=== PATIENT | female | born 1970 | race Caucasian/White ===

== ENCOUNTER 2020-03-25 16:19 | Outpatient (CLI) | payer BC, SELFPAY ==
--- NOTE | ~2020-03-25 | XR_ITS ---
EXAMINATION: XR knee RT 3V DATE: 03/25/2020 16:55 INDICATION: Right knee pain and injury. TECHNIQUE: 3 views of right knee were obtained. COMPARISON: None. FINDINGS: Bone alignment is normal. No fracture. There is mild osteoarthritis of lateral and patellof emoral compartments characterized by tiny marginal osteophytes. No knee joint effusion. IMPRESSION: 1. Mild right knee osteoarthritis. Reviewed, dictated and finalized at location A.
== END 2020-03-25 16:20 | disposition home or self-care (01) ==
PROVIDERS: PCP Internal Medicine; Visit Provider Physician Assistant
DX: M25.561 Pain in right knee (principal); M17.11 Unilateral primary osteoarthritis, right knee
CPT/HCPCS: 73562

== ENCOUNTER 2021-04-28 16:19 | Outpatient (CLI) | payer BC, SELFPAY ==
[2021-04-28 16:47] LABS: Add Urine Microscopic? YES; Appearance Urine Cloudy (Clear); Bilirubin Urine Negative (Negative); Blood Urine Negative (Negative); Color Urine Yellow (Yellow); Glucose Urine UA Negative (Negative); Ketones Urine Negative (Negative); Leukocyte Esterase Ur 3+ LEU/UL (Negative); Nitrate Urine Positive (Negative); Protein Urine 1+ mg/dL (Negative); Specific Grav Ur 1.017 (1.001-1.035); Squamous Epithelial Cell Urine Occasional /hpf (Few); Urobilinogen Urine Negative mg/dL (<2.0); WBC Clumps Urine Present /HPF; WBC Urine >75 /hpf
== END 2021-04-28 16:20 | disposition home or self-care (01) ==
LOC: ANHLAB 16:21
PROVIDERS: PCP Internal Medicine; Visit Provider Internal Medicine
DX: R30.0 Dysuria (principal)
CPT/HCPCS: 81001; 87077; 87086; 87186

== ENCOUNTER 2021-06-01 06:57 | Outpatient (CLI) | payer BC, SELFPAY ==
[2021-06-01 07:47] LABS: Add Urine Microscopic? YES; Appearance Urine Cloudy (Clear); Bacteria Urine Trace /hpf; Bilirubin Urine Negative (Negative); Blood Urine 1+ (Negative); Color Urine Yellow (Yellow); Glucose Urine UA Negative (Negative); Ketones Urine Negative (Negative); Leukocyte Esterase Ur 3+ LEU/UL (Negative); Mucus Urine Rare /lpf; Nitrate Urine Negative (Negative); Protein Urine 1+ mg/dL (Negative); Specific Grav Ur 1.013 (1.001-1.035); Squamous Epithelial Cell Urine Rare /hpf (Few); Urobilinogen Urine Negative mg/dL (<2.0); WBC Clumps Urine Present /HPF; WBC Urine >75 /hpf
== END 2021-06-01 06:58 | disposition home or self-care (01) ==
PROVIDERS: PCP Internal Medicine; Visit Provider Internal Medicine
DX: R30.0 Dysuria (principal)
CPT/HCPCS: 81001; 87077; 87086; 87186

== ENCOUNTER → 2021-09-01 02:58 | Outpatient (CLI) | payer BC, SELFPAY ==
[2021-09-01 14:31] LABS: SARS-CoV-2 RNA PCR Negative
== END ==
PROVIDERS: PCP Internal Medicine; Visit Provider Physician Assistant
DX: R68.89 Other general symptoms and signs (principal); Z20.822 Contact with and (suspected) exposure to COVID-19
CPT/HCPCS: C9803; U0003; U0005

== ENCOUNTER 2022-09-12 02:06 | Observation (INO) | payer OTHER, BC, SELFPAY ==
[2022-09-12] VITALS (19 sets, daily range): BP systolic 130–144; BP diastolic 70–95; PULSE 103–150; RESP 13–24; TEMP 36.3–37; O2SAT 97–100; BMI 28.6; BMI 28.9
--- NOTE | ~2022-09-12 | US_ITS ---
EXAMINATION: US venous doppler UE RT DATE: 09/12/2022 14:51 INDICATION: Right upper extremity swelling and redness TECHNIQUE: Grayscale ultrasound images without and with compression and Doppler ultrasound images of the right upper extremity veins were obtained. COMPARISON: None. FINDINGS: The visualized portions of the right internal jugular vein, subclavian vein, axillary vein, brachial veins, basilic vein, cephalic vein, radial vein, and ulnar vein are patent. IMPRESSION: 1. No deep venous thrombosis. Reviewed, dictated and finalized at location K.
--- NOTE | ~2022-09-12 | US_ITS ---
EXAMINATION: US soft tissue UE RT DATE: 09/12/2022 14:41 INDICATION: Cellulitis at the right forearm. TECHNIQUE: Multiple grayscale and Doppler ultrasound images of the region of concern at the anterior mid left forearm were obtained. COMPARISON: None FINDINGS: There is soft tissue swelling and nonfocal increased echogenicity of the subcutaneous fat at the varsha on of concern consistent with provided history of cellulitis. There appears to be a subtle linear sca r along the overlying skin surface. There appear to be 5 small very hypoechoic lymph nodes, all measu ring <5 mm in maximal short axis diameter. No other abnormal masses or fluid collections identified. IMPRESSION: 1. Soft tissue swelling and increased echogenicity of the subcutaneous fat which would be consistent with provided history of cellulitis. No associated abscess. 2. A few small lymph nodes measuring up to 5 mm in maximal short axis diameter in the subcutaneous ti ssues at the mid right forearm. This would be an atypical distribution of lymph nodes however per pro vided history this was a site of a prior lymph node transplant from 3 years prior. Reviewed, dictated and finalized at location A. IMPRESSION: 1. Soft tissue swelling and increased echogenicity of the subcutaneous fat whic h would be consistent with provided history of cellulitis. No associated absces s. 2. A few small lymph nodes measuring up to 5 mm in maximal short axis diameter in the subcutaneous tissues at the mid right forearm. 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
--- NOTE | 2022-09-12 02:30 | ECG_ITS ---
Measurements Intervals Dorothy Rate: 127 P: 67 AK: 156 QRS: 38 QRSD: 72 T: 63 QT: 287 QTc: 418 Interpretive Statements SINUS TACHYCARDIA ABNORMAL ECG NO PREVIOUS ECG AVAILABLE FOR COMPARISON Electronically Signed On 09-12-2022 15:09:25 CDT by Ollie Copeland D.O.
[2022-09-12] MEDS: SODIUM CHLORIDE 0.9% IV 2,000 ML 999 ML IV CONT (03:45)
[2022-09-12] MEDS: cefTRIAXone 2 GM/NS 100 ML 2 GM/100 ML BAG IVPB ×2 (03:46→21:07)
[2022-09-12 03:59] LABS: Basophils Percent Auto 0.2 % (0.2-1.2); Eosinophils Percent Auto 0.1 % (0-4.4); Hematocrit 40.5 % (37.0-47.0); Hemoglobin 13.8 g/dL (12.0-15.0); Immature Granulocyte Absolute 0.06 K/mm3 (0.00-0.031); Immature Granulocyte Percent A 0.4 % (0-0.5); Lymphocytes Absolute Auto 0.66 K/mm3 (0.9-3.2); Lymphocytes Percent Auto 4.8 % (18.3-44.2); Mean Corpuscular HGB Conc 34.1 g/dl (32-36); Mean Corpuscular Hemoglobin 30.9 pg (26-34); Mean Corpuscular Volume 90.8 fl (80-100); Mean Platelet Volume 10.7 fl (7.4-10.4); Monocytes Absolute Auto 0.9 K/mm3 (0.1-0.6); Monocytes Percent Auto 6.2 % (2.6-8.5); Neutrophils Absolute Auto 12.1 K/mm3 (1.3-6.7); Neutrophils Percent Auto 88.3 % (45.5-73.1); Platelet Count Result 267 k/mm3 (150-375); Red Blood Count 4.46 M/mm3 (4.2-5.4); Red Cell Distribution Width 12.9 % (11.5-14.5); White Blood Count 13.8 K/mm3 (4.5-10.0)
--- NOTE | 2022-09-12 04:08 | ED.SKABFB ---
HPI - Skin/Abscess/Foreign Bdy General Chief complaint: Skin/Abscess/Foreign Body Stated complaint: cellulitis Time Seen by Provider: 09/12/22 03:23 History of Present Illness HPI narrative: This is a 52-year-old female, with past history of breast cancer, status post mastectomy on the right and recurrent history of right arm cellulitis, secondary to lymphedema. The patient states earlier this evening, she noted some redness of the right arm, concerning for recurrent cellulitis. She took four 250 mg tablets of penicillin as recommended by her infectious disease doctor. Approximately 4 hours later and 2 hours prior to arrival, she woke and noticed rapid spread of redness up the right arm. She also noticed fever of 103 degrees at home. She states she took Tylenol and presented to the emergency department. She denies chest pain or shortness of breath. Related Data Home Medications Medication Instructions Recorded Confirmed anastrozole 1 mg tablet 1 mg PO DAILY 07/06/19 09/12/22 fexofenadine 180 mg tablet 180 mg PO ONCE PRN Allergy Symptoms 07/06/19 09/12/22 venlafaxine 37.5 mg 37.5 mg PO BID 07/06/19 09/12/22 capsule,extended release 24 hr (Effexor XR) penicillin V potassium 250 mg 250 mg PO Q12H 03/02/20 09/12/22 tablet omeprazole 20 mg capsule,delayed 20 mg PO DAILY PRN Acid Reflux 09/12/22 09/12/22 release Allergies Allergy/AdvReac Type Severity Reaction Status Date / Time latex AdvReac Mild Rash Verified 09/12/22 06:33 Review of Systems Review of Systems: CONSTITUTIONAL: fever, chills, Denies sweats. CARDIOVASCULAR: Denies chest pain, palpitations, or edema. RESPIRATORY: Denies cough or dyspnea. GASTROINTESTINAL: Denies abdominal pain, nausea, vomiting, or diarrhea. GENITOURINARY: Denies dysuria or hematuria. SKIN: Spreading erythema and pain of the right arm denies itching. MUSCULOSKELETAL: Denies back pain, joint pain, or myalgia. NEUROLOGIC: Denies headache, numbness, dizziness, or weakness. PSYCHIATRIC: Denies anxiety or depression. PENDING SALE TO [facility] Past Medical History Medical History (Updated 09/13/22 @ 04:16 by Efren Mills MD) Anxiety Breast cancer Cellulitis of right upper extremity Esophageal reflux disease Hyperlipidemia Hypertension Low vitamin D level Overweight (BMI 25.0-29.9) Surgical History Surgical History (Updated 09/12/22 @ 17:11 by Juli Paez APRN) H/O lymph node excision Prior right arm lymph node transfer 2020 History of modified radical mastectomy of right breast 2012 Family History Family History Father Family history of lung cancer, Onset Age: 78 Patient's father is Mother Diabetes mellitus Hypertension Hypercholesteremia Social History Social History (Updated 09/12/22 @ 17:12 by Juli Paez APRN) Smoking packs per day: 0.25 Smoking cigarettes per day: 5.0 Years smoked: 1.5 Smoking pack-years: 0.38 Smoking status: Former smoker Tobacco type: cigarettes Second hand tobacco smoke exposure: No Smoking end date: 06/24/94 Additional smoking assessment comments: smoked in teens Alcohol intake: current Drinks per week: 1 Alcohol use details: socially Substance use: never Lack of Transportation: No Lack of Food: Never True Current Housing: I Have Housing Concerned About Future Housing: No Difficulty Paying Gas/Electric Bills: No Difficulty Paying for Meds: No Currently Unemployed: No Education: High School Diploma/GED Difficulty w/ Childcare or Family Care: No Living arrangements: with family Occupation/Education: occupation 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 Spiritual care concerns: No Exam Narrative: GENERAL: Well-developed, well-nourished, and in no acute distress. HEAD: Normocephalic, atraumatic. EYES: PERRLA and EOMI. ENT: Nares clear, no rhinorrhea or epista
[2022-09-12 04:09] LABS: Lactic Acid Reflex 1.8 mmol/L (0.7-2.0)
[2022-09-12 04:11] LABS: Alanine Aminotransferase 24 U/L (6-35); Albumin Level 4.5 g/dL (3.5-5.1); Alkaline Phosphatase 114 U/L (38-126); Anion Gap 6 mmol/L (8-16); Aspartate Amino Transferase 33 U/L (14-36); Bilirubin,Total 0.8 mg/dL (0.2-1.3); Blood Urea Nitrogen 19 mg/dL (7-17); CRP 0.7 mg/dL (<1.0); Calcium 9.4 mg/dL (8.4-10.2); Carbon Dioxide 26 mmol/L (22-30); Chloride 103 mmol/L (98-107); Estimated CRCL calculation 64 ml/min; Estimated Glomerular Filt Rate > 60; Glucose 118 mg/dL (65-110); Potassium 4.2 mmol/L (3.4-5.0); Sodium 135 mmol/L (137-145)
[2022-09-12 04:33] LABS: INR 1.1; Prothrombin Time 13.3 Seconds (11.1-14.7)
[2022-09-12 04:34] LABS: Partial Thromboplastin Time 29.3 SECONDS (22.3-36.8)
--- NOTE | 2022-09-12 06:05 | PC.NURSE ---
Patient arrived on 3 Med-Surg at 06:05 on 09/12/2022
[2022-09-12] MEDS: SODIUM CHLORIDE 0.9% IV 1,000 ML 125 ML IV CONT ×2 (06:21→16:30)
--- NOTE | 2022-09-12 06:22 | PC.NURSE ---
Patient arrived on 3 Med-Surg at 06:00 on 09/12/2022
--- NOTE | 2022-09-12 07:12 | PM.IMHP ---
H&P: HPI History of Present Illness Date/Time: 09/12/22 07:12 Chief Complaint: right arm cellulitis Narrative: Aubree Rodriguez is a 52 yo female with history of breast cancer s/p right radical mastectomy and recurrent cellulitis s/p lymph node transfer on chronic antibiotic suppression. She presented to the ED for evaluation of rapidly progressing redness to her right arm, fever 101F oral, chills and rigors. She reported right arm swelling started at approximately 1:00 yesterday and significantly worsened over a few hours. She takes PCN VK 250 mg PO BID for cellulitis suppression and and reported taking increasing her dose to 4 tablets as she has previously been instructed and OTC tylenol for fever. Given this, she presented for evaluation. She reports some concern as her last infection was in 2019 prior to lymph node transfer procedure. She denies chest pain, shortness of breath, ARGUELLES, sore throat, cough, abdominal pain, N/V/D, urinary symptoms, or paresthesia. In the ED, vitals were HR 150, BP 144/85, Temp 98.6F oral, RR 24 and spO2 100% RA. Lab work showed WBC 13.8, lactic acid 1.8, but otherwise normal CBC and CMP. She was givne 2 liters NS IV x1, IV Vancomycin x1, and Rocephin 2 grams IV x1. She was admitted for management of cellulitis and sepsis. Review of Systems Review of Systems: All systems reviewed & are unremarkable except as noted in HPI and below Constitutional: Constitutional: Reports as per HPI Eyes: Eyes: Reports no additional eye complaints ENT: Reports system reviewed and no additional complaints, except as documented Cardiovascular: Cardiovascular: Reports lightheadedness (prior to admission and improved now) Respiratory: Respiratory: Reports no additional respiratory complaints Gastrointestinal: Gastrointestinal: Reports no additional gastrointestinal complaints Genitourinary: Genitourinary: Reports no additional female genitourinary complaints Musculoskeletal: Musculoskeletal: Reports as per HPI Integumentary/Breasts: Skin/Breast: Reports as per HPI Neurologic: Reports system reviewed and no additional complaints, except as documented Psychiatric: Psychiatric: Reports anxiety (h/o panic attacks. ) [facility] Past Medical History Medical History (Updated 09/12/22 @ 17:24 by Juli Paez, CARLOS) Anxiety Breast cancer Cellulitis of right upper extremity Esophageal reflux disease Hyperlipidemia Hypertension Low vitamin D level Overweight (BMI 25.0-29.9) Surgical History Surgical History (Updated 09/12/22 @ 17:11 by Juli Paez APRN) H/O lymph node excision Prior right arm lymph node transfer 2019 History of modified radical mastectomy of right breast 2012 Family History Family History Father Family history of lung cancer, Onset Age: 78 Patient's father is Mother Diabetes mellitus Hypertension Hypercholesteremia Social History Social History (Updated 09/12/22 @ 17:12 by Juli Paez APRN) Smoking packs per day: 0.25 Smoking cigarettes per day: 5.0 Years smoked: 1.5 Smoking pack-years: 0.38 Smoking status: Former smoker Tobacco type: cigarettes Second hand tobacco smoke exposure: No Smoking end date: 06/24/94 Additional smoking assessment comments: smoked in teens Alcohol intake: current Drinks per week: 1 Alcohol use details: socially Substance use: never Lack of Transportation: No Lack of Food: Never True Current Housing: I Have Housing Concerned About Future Housing: No Difficulty Paying Gas/Electric Bills: No Difficulty Paying for Meds: No Currently Unemployed: No Education: High School Diploma/GED Difficulty w/ Childcare or Family Care: No Living arrangements: with family Occupation/Education: occupation 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 Spiritual care concerns: No Meds H
[2022-09-12] MEDS: SODIUM CHLORIDE 0.9% IV 1,000 ML 999 ML IV CONT (08:37)
[2022-09-12 08:50] LABS: CRP 0.6 mg/dL (<1.0)
[2022-09-12 08:57] LABS: Procalcitonin 0.1 ng/mL
[2022-09-12] MEDS: VENLAFAXINE HCL XR 37.5 MG CAP PO (21:07)
[2022-09-13] VITALS: BP 134/77; PULSE 106; PULSE 120; RESP 16; TEMP 36.7; O2SAT 98
[2022-09-13 04:00] VITALS: PULSE 93
[2022-09-13 06:00] VITALS: BP 128/78; PULSE 102; RESP 16; TEMP 36.7; O2SAT 98
[2022-09-13] MEDS: SODIUM CHLORIDE 0.9% IV 1,000 ML 125 ML IV CONT (06:24)
[2022-09-13 06:34] LABS: Basophils Percent Auto 0.5 % (0.2-1.2); Eosinophils Absolute Auto 0.1 K/mm3 (0-0.3); Eosinophils Percent Auto 0.8 % (0-4.4); Hemoglobin 11.9 g/dL (12.0-15.0); Immature Granulocyte Absolute 0.04 K/mm3 (0.00-0.031); Immature Granulocyte Percent A 0.5 % (0-0.5); Lymphocytes Percent Auto 25.3 % (18.3-44.2); Mean Corpuscular HGB Conc 33.1 g/dl (32-36); Mean Corpuscular Hemoglobin 31.2 pg (26-34); Mean Corpuscular Volume 94.2 fl (80-100); Mean Platelet Volume 10.3 fl (7.4-10.4); Neutrophils Absolute Auto 5.3 K/mm3 (1.3-6.7); Neutrophils Percent Auto 60.9 % (45.5-73.1); Platelet Count Result 219 k/mm3 (150-375); Red Blood Count 3.82 M/mm3 (4.2-5.4); Red Cell Distribution Width 13.2 % (11.5-14.5); White Blood Count 8.7 K/mm3 (4.5-10.0)
[2022-09-13 06:50] LABS: Anion Gap 5 mmol/L (8-16); Blood Urea Nitrogen 7 mg/dL (7-17); Calcium 8.5 mg/dL (8.4-10.2); Carbon Dioxide 24 mmol/L (22-30); Chloride 109 mmol/L (98-107); Estimated CRCL calculation 92 ml/min; Estimated Glomerular Filt Rate > 60; Glucose 98 mg/dL (65-110); Potassium 4.1 mmol/L (3.4-5.0); Sodium 138 mmol/L (137-145)
[2022-09-13 08:00] VITALS: PULSE 87
[2022-09-13 08:11] VITALS: BP 137/86; PULSE 84; RESP 16; TEMP 36.2; O2SAT 99
[2022-09-13] MEDS: lisinopriL 10 MG TABLET PO (09:19)
[2022-09-13] MEDS: ANASTROZOLE (*CHEMO) 1 MG TABLET PO (09:19)
[2022-09-13] MEDS: VENLAFAXINE HCL XR 37.5 MG CAP PO (09:19)
[2022-09-13] MEDS: PANTOPRAZOLE 40 MG TABLET PO (09:19)
--- NOTE | 2022-09-13 11:07 | PM.DS ---
DS: Admitting Diagnosis Discharge Date 09/13/22 Admitting Diagnosis Sepsis, unspecified organism Cellulitis of right upper limb Personal history of malignant neoplasm of breast Essential (primary) hypertension Anxiety DS: Discharge Diagnosis Discharge Diagnosis (1) Sepsis: Qualifiers: Sepsis type: sepsis due to unspecified organism Sepsis acute organ dysfunction status: without acute organ dysfunction Qualified Code(s): A41.9 - Sepsis, unspecified organism Code(s): A41.9 - Sepsis, unspecified organism Status: Acute Assessment and Plan: Patient presented to the hospital with subjective fevers 101 F, heart rate 150s, respiration 24, WBC 13.8 and skin changes suggestive of cellulitis. Lactic acid 1.8. BP 144/85. Patient given 2 L NS IV fluids in the ED. Patient still with tachycardia HR 100 to 130s upon admission to the medical floor and given additional NS 1 L bolus x1. Treated with broad-spectrum IV antibiotics. blood cultures negative to date. Monitored hemodynamics and telemetry showing sinus tachycardia (2) Cellulitis of right upper extremity: Code(s): L03.113 - Cellulitis of right upper limb Status: Acute Assessment and Plan: Redness, edema and fever on admission suggesting acute infection and nonpurulent cellulitis. H/O cellulitis and prior lymph node transfer to right forearm. Patient reported taking suppressive penicillin VK 250 mg p.o. b.i.d. prescribed by [facility] [employer] Broad-spectrum antibiotics started- IV Vancomycin pharmacy to dose and IV Rocephin 2 grams Q24 hours. soft-tissue US without significant fluid collection suggestive of abscess abscess venous doppler US negative for DVT Trend CBC- WBC 13.8 on admission and trended to 8.7. Patient reported taking suppressive penicillin VK 250 mg p.o. b.i.d. prescribed by [facility] [employer] Cellulitis improved quickly on IV antibiotics. Discussed case with [employer] Angeline Ellis at [facility], who recommended increasing Penicillin VK 500 mg PO QID x 14 days and following up outpatient in the office within that time frame. (3) Hx of breast cancer: Code(s): Z85.3 - Personal history of malignant neoplasm of breast Status: Chronic Assessment and Plan: History of breast cancer 2013 status post modified radical mastectomy and lymph node removal. Followed at [facility]. Mastectomy site without erythema, induration or open wound. (4) Hypertension: Code(s): I10 - Essential (primary) hypertension Status: Chronic Assessment and Plan: Chronic, stable. Continue lisinopril at home dose (5) Esophageal reflux disease: Code(s): K21.9 - Gastro-esophageal reflux disease without esophagitis Status: Chronic Assessment and Plan: Chronic, continue PPI (6) Anxiety: Code(s): F41.9 - Anxiety disorder, unspecified Status: Chronic Assessment and Plan: Chronic, reports intermittent panic attacks significantly improved on current medications. She does endorse however mild anxiety due to recurrent cellulitis that has been well controlled for approximately 2 years. Continue Effexor at home dose At p.r.n. lorazepam as needed for panic attacks Tachycardia may have an anxiety component. Monitored and improved. DS: Summary Hospital Course Reason for hospitalization: Right arm cellulitis Hospital Course: Aubree Rodriguez is a 52 yo female with history of breast cancer s/p right radical mastectomy and recurrent cellulitis s/p lymph node transfer on chronic antibiotic suppression. She presented to the ED for evaluation of rapidly progressing redness to her right arm, fever 101F oral, chills and rigors. She reported right arm swelling started at approximately 1:00 yesterday and significantly worsened over a few hours. She takes PCN VK 250 mg PO BID for cellulitis suppression and and reported taking an additional
[2022-09-13] MEDS: PENICILLIN V POTASSIUM 250 MG TABLET 500 MG PO (11:48)
== END 2022-09-13 12:05 | disposition home or self-care (01) ==
LOC: ANHED 03:23 → ANH3MEDSUR 06:00
PROVIDERS: Nurse Practitioner Family; Admitting Provider Internal Medicine; Emergency Provider Preventive Medicine Aerospace Medicine; PCP Internal Medicine; Visit Provider Student in an Organized Health Care Education/Training Program
DX: A41.9 Sepsis, unspecified organism (principal); L03.113 Cellulitis of right upper limb; M79.601 Pain in right arm; R50.9 Fever, unspecified; F41.9 Anxiety disorder, unspecified; K21.9 Gastro-esophageal reflux disease without esophagitis; E78.5 Hyperlipidemia, unspecified; I10 Essential (primary) hypertension; D72.829 Elevated white blood cell count, unspecified; E55.9 Vitamin D deficiency, unspecified; E66.3 Overweight; F10.90 Alcohol use, unspecified, uncomplicated; Z90.11 Acquired absence of right breast and nipple; Z68.28 Body mass index [BMI] 28.0-28.9, adult; Z85.3 Personal history of malignant neoplasm of breast; Z87.891 Personal history of nicotine dependence; Z79.899 Other long term (current) drug therapy; Z80.1 Family history of malignant neoplasm of trachea, bronchus and lung; Z82.49 Family history of ischemic heart disease and other diseases of the circulatory system; Z84.89 Family history of other specified conditions
CPT/HCPCS: 36415; 76882; 80048; 80053; 83605; 84145; 85025; 85610; 85730; 86140; 87040; 93005; 93971; 96361; 96365; 96366; 96375; 96376; 99285; A9270; G0378; J0131; J0696; J3370; J7030